=== PATIENT | male | born 1995 | race Hispanic/Latino ===

== ENCOUNTER 2018-02-13 20:20 | Emergency (ER) | payer BC ==
[~2018-02-13] VITALS: Ht 177.8 cm; Wt 79.8 kg
== END 2018-02-13 22:49 | disposition home or self-care (01) ==
LOC: FSED 20:20
DX: R10.31 Right lower quadrant pain (principal)
CPT/HCPCS: 74177; 80048; 81003; 85025; 99284

== ENCOUNTER 2018-04-30 10:27 | Emergency (ER) | payer BC ==
[~2018-04-30] VITALS: Ht 177.8 cm; Wt 79.8 kg
[2018-04-30] MEDS ORDERED: CIALIS5 MG PO (10:40)
[2018-04-30] MEDS ORDERED: ROBAXIN-750750 MG PO (11:04)
[2018-04-30] MEDS ORDERED: KETOROLAC TROME10 MG PO (11:04)
--- OUTSIDE RECORDS SUMMARY | 2018-05-02 13:57 | XMS REPORT | Clinical Summary ---
Author Author [facility] Organization [facility] Address Unknown Phone Unavailable Care Team Providers Care Geospatial Specialist Name Role Phone PCP Unavailable Allergies No Known Allergies Current Medications Prescription Sig. Disp. Refills Start End Date Status Date famotidine (PEPCID) 20 mg Take 1 tablet by mouth 2 60 tablet 0 07/29/19 Active tabletIndications: times daily. 18 Gastroesophageal reflux disease, esophagitis presence not specified Active Problems Problem Noted Date Gastroesophageal reflux disease 07/29/2017 Encounters Date Type Specialty Care Team Description 07/29/2017 Emergency Emergency Medicine Papa Rubio MD Gastroesophageal reflux disease, esophagitis presence not specified (Primary Dx); Epigastric pain after 04/29/2017 Social History Tobacco Use Types Packs/Day Years Used Date Current Some Day Smoker Smokeless Tobacco: Former User Sex Assigned at Date Recorded Not on file Last Filed Vital Signs Vital Sign Reading Time Taken Blood Pressure 126/68 07/29/2017 10:00 PM VACCINE CUSTOMER REPRESENTATIVE Pulse 88 07/29/2017 10:00 PM VACCINE CUSTOMER REPRESENTATIVE Temperature 36.9 C (98.5 F) 07/29/2017 10:00 PM VACCINE CUSTOMER REPRESENTATIVE Respiratory Rate 18 07/29/2017 10:00 PM VACCINE CUSTOMER REPRESENTATIVE Oxygen Saturation 98% 07/29/2017 10:00 PM VACCINE CUSTOMER REPRESENTATIVE Inhaled Oxygen - - Concentration Weight - - Height - - Body Mass Index - - Plan of Treatment Health Maintenance Due Date Last Done Comments IMM MenB (1 of 2 - 2004 Bexsero 2-Dose Series) IMM Influenza Seasonal 04/17/2018Apr to September (>/=19 yrs) Procedures Procedure Name Priority Date/Time Associated Diagnosis Comments CBC/DIFF STAT 07/29/2017 Results for this 9:10 AM VACCINE CUSTOMER REPRESENTATIVE procedure are in the results section. LIVER PROFILE STAT 07/29/2017 Results for this 9:10 AM VACCINE CUSTOMER REPRESENTATIVE procedure are in the results section. LIPASE STAT 07/29/2017 Results for this 9:10 AM VACCINE CUSTOMER REPRESENTATIVE procedure are in the results section. HIV-1/HIV-2 ROUTINE STAT 07/29/2017 Results for this SCREENING 9:10 AM VACCINE CUSTOMER REPRESENTATIVE procedure are in the results section. BMP POC Routine 07/29/2017 Results for this 9:08 AM VACCINE CUSTOMER REPRESENTATIVE procedure are in the results section. UA CHEMISTRIES STAT 07/29/2017 Results for this 9:00 AM VACCINE CUSTOMER REPRESENTATIVE procedure are in the results section. after 04/29/2017 Results * HIV-1/HIV-2 ROUTINE SCREENING (07/29/2017 9:10 AM) HIV-1/HIV-2 Negative NEG BT OUTPATIENT DRAW 2 Performing Organization Address [facility] Phone Number MISYS BT OUTPATIENT DRAW 2 * LIVER PROFILE (07/29/2017 9:10 AM) T Protein 7.5 6.4 - 8.2 g/dL BT MAIN-STATION 4 Albumin 4.1 3.4 - 5.0 g/dL BT MAIN-STATION 4 T Bilirubin 1.4 (H) 0.2 - 1.0 mg/dL BT MAIN-STATION 4 Alk Phos 81 45 - 117 U/L BT MAIN-STATION 4 AST 20 15 - 37 U/L BT MAIN-STATION 4 ALT 35 12 - 78 U/L BT MAIN-STATION 4 D Bilirubin 0.3 (H) 0.0 - 0.2 mg/dL BT MAIN-STATION 4 Specimen Blood Performing Organization Address [facility] Phone Number MISYS BT MAIN-STATION 4 * LIPASE (07/29/2017 9:10 AM) Lipase 84 73 - 393 U/L BT MAIN-STATION 4 Specimen Blood Performing Organization Address [facility] Phone Number MISYS BT MAIN-STATION 4 * CBC/DIFF (07/29/2017 9:10 AM) WBC 9.0 4.5 - 12.0 K/uL BT MAIN-STATION 2 RBC 4.90 4.60 - 6.20 M/uL BT MAIN-STATION 2 Hemoglobin 15.3 14.0 - 18.0 g/dL BT MAIN-STATION 2 Hematocrit 45.5 40.0 - 54.0 % BT MAIN-STATION 2 MCV 93 (H) 82 - 92 fL BT MAIN-STATION 2 MCH 31.2 (H) 27.0 - 31.0 pg BT MAIN-STATION 2 MCHC 33.6 32.0 - 36.0 g/dL BT MAIN-STATION 2 RDW 43.2 35.1 - 43.9 fL BT MAIN-[facility]ATION 2 Platelet 236 150 - 400 K/uL BT MAIN[facility] 2 Mean Platelet Volume 11.3 9.4 - 12.4 fL BT MAIN-STATION 2 Percent NRBC 0.0 BT MAIN-STATION 2 Absolute NRBC 0.00 BT MAIN-[facility]ATION 2 Neutrophil 66.6 34.0 - 67.9 % BT MAIN-[facility] 2 Lymphocyte 22.6 21.8 - 50.0 % BT MAIN-[facility]ATION 2 Monocyte 10.1 5.3 - 12.0 % BT MAIN-[facility] 2 Eosinophil 0.1 (L) 0.8 - 5.0 % BT MAIN-STATION 2 Basophil 0.3 0.2 - 1.2 % BT MAIN-STATION 2 Pct Immat Gran 0.3 0.0 - 0.5 BT MAIN-STATION 2 Neutrophil, Abs 5.99 (H) 1.78 - 5.36 K/uL BT MAIN-STATION 2 Lymphocyte, Abs 2.04 1.32 - 3.57 K/uL BT MAIN-STATION 2 Monocyte, Abs 0.91 (H) 0.30 - 0.82 K/uL BT MAIN-STATION 2 Eosinophil, Abs 0.01 (L) 0.04 - 0.54 K/uL BT MAIN-STATION 2 Basophil, Abs 0.03 0.01 - 0.08 K/uL BT MAIN-STATION 2 Absol Immat Gran 0.03 0.00 - 0.03 K/uL BT MAIN-STATION 2 Specimen Blood Performing Organization Address City/State/Zipcode Phone Number MISYS BT MAIN-STATION 2 * BMP POC (07/29/2017 9:08 AM) CO2 POC 26 21 - 32 mmol/L BT MAIN-STATION 1 Chloride POC 101 98 - 107 mmol/L BT MAIN-[facility]ATION 1 Potassium POC 4.1 3.50 - 5.10 mmol/L BT MAIN-STATION 1 Sodium POC 141 136 - 145 mmol/L BT MAIN-[facility]ATION 1 Glucose POC 98 74 - 106 mg/dL BT [facility]IN[facility] 1 Urea Nitrogen POC 10 7 - 18 mg/dL BT [facility]IN[facility] 1 Creatinine POC 0.8 0.6 - 1.3 mg/dL BT MAIN-[facility] 1 Calcium Ionized POC 1.19 1.15 - 1.29 mmol/L BT MAIN-[facility]ATION 1 Hemoglobin POC 16.3 14.0 - 18.0 g/dL BT MAIN-[facility]ATION 1 Hematocrit POC 48.0 40.0 - 54.0 % BT MAIN-STATION 1 GFR, Estimated >60 mL/min/1.73 m2 BT MAIN-STATION 1 GFR, Estim, Afr-Am >60 mL/min/1.73 m2 BT MAIN-STATION 1 Performing Organization Address [facility] Phone Number MISYS BT MAIN-STATION 1 * UA CHEMISTRIES (07/29/2017 9:00 AM) Color Yellow BT MAIN-STATION 3 Clarity Clear BT MAIN-STATION 3 Spec [place] 1.019 1.001 - 1.035 BT MAIN-STATION 3 pH 7.0 5 - 8 BT MAIN-STATION 3 Protein Negative NEG BT MAIN-STATION 3 Glucose Negative NEG BT MAIN-STATION 3 Ketone Negative NEG BT MAIN-STATION 3 Bilirubin Negative NEG BT MAIN-STATION 3 Nitrate Negative NEG BT MAIN-STATION 3 Urobilinogen <1.0 0.2 - 1.0 EU/dL BT MAIN-STATION 3 Leukocyte Negative NEG BT MAIN-STATION 3 Blood Negative NEG BT MAIN-STATION 3 Specimen Urine Performing Organization Address [facility] Phone Number MISYS BT MAIN-STATION 3 after 04/29/2017
--- OUTSIDE RECORDS SUMMARY | 2018-05-02 13:57 | XMS REPORT | Continuity of Care Document ---
Author Author [facility] Interface Address Unknown Phone Unavailable Problems Problem Status Onset Date Classification Date Reported Comments Source Weakness 09/13/2017 12/11/2017 [facility] Testicular pain, unspecified 09/09/2017 12/08/2017 [facility] Generalized weakness 2017 12/11/2017 [facility] WEAKNESS Active 2017 [facility] Testicular pain 09/01/2017 12/08/2017 [facility] TESTICULAR PAIN Active 08/31/2017 [facility] Gastroesophageal reflux disease Active 07/29/2017 Problem 04/21/2018 [facility] Balanitis Active Problem 01/12/2018 [facility] Prostatitis Active Problem 01/12/2018 [facility] Other fatigue 12/11/2017 [facility] Left testicular pain 12/11/2017 [facility] Right testicular pain 12/11/2017 [facility] Medications Medication Details Route Status Patient Instructions Ordering Provider Order Date Source Pimecrolimus 10 MG/ML Topical Cream [Elidel] 1 appl, TOP, BID, X 30 day, # 15 gm, 0 Refill(s), Pharmacy: [id number] [id number] Active 01/05/2018 [facility] Trimethoprim 100 MG Oral Tablet 100 mg=1 tab, PO, Q12H, take 1 after intercourse, X 30 day, # 30 tab, 0 Refill(s), Pharmacy: [facility] [id number] Active 01/05/2018 [facility] Pimecrolimus 10 MG/ML Topical Cream [Elidel] 1 appl, TOP, Daily, apply and rub in well, X 7 day, # 15 gm, 0 Refill(s), Pharmacy: [facility] [id number] Active 11/10/2017 [facility] Clotrimazole 10 MG/ML Topical Solution 1 appl, TOP, TID, X 10 day, # 30 mL, 1 Refill(s), Pharmacy: [facility] [id number] No Longer Active 10/06/2017 [facility] Ciprofloxacin 500 MG Oral Tablet [Cipro] 500 mg=1 tab, PO, Q12H, X 30 day, # 60 tab, 1 Refill(s), Pharmacy: [id number] No Longer Active 10/06/2017 [facility] Ciprofloxacin 500 MG Oral Tablet [Cipro] 500 mg=1 tab, PO, Q12H, X 28 day, # 56 tab, 0 Refill(s) No Longer Active 09/08/2017 [facility] Tamsulosin hydrochloride 0.4 MG Oral Capsule [Flomax] 0.4 mg=1 cap, PO, Daily, Take before bed, # 30 cap, 0 Refill(s) No Longer Active 09/08/2017 [facility] Ondansetron 4 MG Disintegrating Tablet 4 mg=1 tab, PO, TID, PRN Nausea / Vomiting, Dissolve tab under tongue, # 20 tab, 0 Refill(s) Active 2017 [facility] ibuprofen 800 mg oral tablet 800 mg=1 tab, PO, Q6H, PRN Fever or Pain, Take with food, X 10 day, # 30 tab, 0 Refill(s) No Longer Active 09/01/2017 [facility] Phenazopyridine hydrochloride 200 MG Oral Tablet [Pyridium] 200 mg=1 tab, PO, TID, PRN Dysuria, X 2 day, # 6 tab, 0 Refill(s) No Longer Active 09/01/2017 [facility] doxycycline hyclate 100 MG Oral Capsule 100 mg=1 cap, PO, BID, X 14 day, # 28 cap, 0 Refill(s) No Longer Active 09/01/2017 [facility] Ibuprofen 800 mg, Route: PO, Drug form: TAB, ONCE, Dosing Weight 82.273, kg, Priority: STAT, Start date: 09/01/17 1:48:00 [employer], Stop date: 09/01/17 1:48:00 [employer] Inactive 09/01/2017 [facility] Famotidine 20 Mg Tablet Pepcid 20 Mg Tablet Take 1 tablet by mouth 2 times daily. Oral Active 07/29/2017 [facility] Allergies, Adverse Reactions, Alerts Substance Category Reaction Severity Reaction type Status Date Reported Comments Source Immunizations Immunization Date Given Site Status Last Updated Comments Source Results Order Name Results Value Reference Range Date Interpretation Comments Source URINE AND STOOL POC UA Turbidity Clear *NA* (01/05/18 10:35 AM) Clear 01/05/2018 [facility] URINE AND STOOL POC UA SG 1.025 <=1.030 01/05/2018 [facility] URINE AND STOOL POC UA Color Yellow *NA* (01/05/18 10:35 AM) Yellow 01/05/2018 [facility] URINE AND STOOL POC UA LeukEst Negative *NA* (01/05/18 10:35 AM) Negative 01/05/2018 [facility] URINE AND STOOL POC UA Bld Negative *NA* (01/05/18 10:35 AM) Negative 01/05/2018 [facility] URINE AND STOOL POC UA Uro 1.0 EU/dL 0.1 - 1.0 01/05/2018 [facility] URINE AND STOOL POC UA Nit Negative *NA* (01/05/18 10:35 AM) Negative 01/05/2018 [facility] URINE AND STOOL POC UA Glu Negative mg/dL Negative mg/dL 01/05/2018 [facility] URINE AND STOOL POC UA Bili Negative *NA* (01/05/18 10:35 AM) Negative 01/05/2018 [facility] URINE AND STOOL POC UA Prot 30 mg/dL Negative mg/dL 01/05/2018 [facility] URINE AND STOOL POC UA Ket Negative mg/dL Negative mg/dL 01/05/2018 [facility] URINE AND STOOL POC UA pH 7.0 5.0 - 8.0 01/05/2018 [facility] URINE AND STOOL POC UA LeukEst Negative *NA* (11/10/17 8:41 AM) Negative 11/10/2017 [facility] URINE AND STOOL POC UA Nit Negative *NA* (11/10/17 8:41 AM) Negative 11/10/2017 [facility] URINE AND STOOL POC UA Bili Negative *NA* (11/10/17 8:41 AM) Negative 11/10/2017 [facility] URINE AND STOOL POC UA Ket Negative mg/dL Negative mg/dL 11/10/2017 [facility] URINE AND STOOL POC UA Uro 0.2 EU/dL 0.1 - 1.0 11/10/2017 [facility] URINE AND STOOL POC UA Glu Negative mg/dL Negative mg/dL 11/10/2017 [facility] URINE AND STOOL POC UA Prot Negative mg/dL Negative mg/dL 11/10/2017 [facility] URINE AND STOOL POC UA pH 7.0 5.0 - 8.0 11/10/2017 [facility] URINE AND STOOL POC UA SG 1.020 <=1.030 11/10/2017 [facility] URINE AND STOOL POC UA Bld Negative *NA* (11/10/17 8:41 AM) Negative 11/10/2017 [facility] URINE AND STOOL POC UA Turbidity Clear *NA* (11/10/17 8:41 AM) Clear 11/10/2017 [facility] URINE AND STOOL POC UA Color Yellow *NA* (11/10/17 8:41 AM) Yellow 11/10/2017 [facility] URINE AND STOOL POC UA LeukEst Negative *NA* (10/06/17 8:40 AM) Negative 10/06/2017 [facility] URINE AND STOOL POC UA Nit Negative *NA* (10/06/17 8:40 AM) Negative 10/06/2017 [facility] URINE AND STOOL POC UA Uro 0.2 EU/dL 0.1 - 1.0 10/06/2017 [facility] URINE AND STOOL POC UA Bld Negative *NA* (10/06/17 8:40 AM) Negative 10/06/2017 [facility] URINE AND STOOL POC UA Bili Negative *NA* (10/06/17 8:40 AM) Negative 10/06/2017 [facility] URINE AND STOOL POC UA Ket Trace mg/dL Negative mg/dL 10/06/2017 [facility] URINE AND STOOL POC UA Glu Negative mg/dL Negative mg/dL 10/06/2017 [facility] URINE AND STOOL POC UA pH 6.0 5.0 - 8.0 10/06/2017 [facility] URINE AND STOOL POC UA Prot Negative mg/dL Negative mg/dL 10/06/2017 [facility] URINE AND STOOL POC UA SG 1.025 <=1.030 10/06/2017 [facility] URINE AND STOOL POC UA Turbidity Clear *NA* (10/06/17 8:40 AM) Clear 10/06/2017 [facility] URINE AND STOOL POC UA Color Yellow *NA* (10/06/17 8:40 AM) Yellow 10/06/2017 [facility] URINE AND STOOL POC UA Turbidity Clear *NA* (09/08/17 8:47 AM) Clear 09/08/2017 [facility] URINE AND STOOL POC UA Color Yellow *NA* (09/08/17 8:47 AM) Yellow 09/08/2017 [facility] URINE AND STOOL POC UA Bili Negative *NA* (09/08/17 8:47 AM) Negative 09/08/2017 [facility] URINE AND STOOL POC UA Ket Negative mg/dL Negative mg/dL 09/08/2017 [facility] URINE AND STOOL POC UA Bld Negative *NA* (09/08/17 8:47 AM) Negative 09/08/2017 [facility] URINE AND STOOL POC UA SG 1.025 <=1.030 09/08/2017 [facility] URINE AND STOOL POC UA Glu Negative mg/dL Negative mg/dL 09/08/2017 [facility] URINE AND STOOL POC UA Prot Negative mg/dL Negative mg/dL 09/08/2017 [facility] URINE AND STOOL POC UA pH 7.0 5.0 - 8.0 09/08/2017 [facility] URINE AND STOOL POC UA Nit Negative *NA* (09/08/17 8:47 AM) Negative 09/08/2017 [facility] URINE AND STOOL POC UA Uro 0.2 EU/dL 0.1 - 1.0 09/08/2017 [facility] URINE AND STOOL POC UA LeukEst Negative *NA* (09/08/17 8:47 AM) Negative 09/08/2017 [facility] ELECTROLYTES AGAP 10.9 meq/L 10.0 - 20.0 2017 [facility] ELECTROLYTES Globulin 3.6 g/dL 2.7 - 4.2 2017 [facility] ELECTROLYTES B/C Ratio 14 6 - 25 2017 [facility] ELECTROLYTES A/G Ratio 1.1 0.7 - 1.6 2017 [facility] ELECTROLYTES eGFR 131 mL/min/1.73m2 2017 Result Comment: The eGFR is calculated using the CKD-EPI formula. In most young, healthy individuals the eGFR will be >90 mL/min/1.73m2. The eGFR declines with age. An eGFR of 60-89 may be normal in some populations, particularly the elderly, for whom the CKD-EPI formula has not been extensively validated. Use of the eGFR is not recommended in the following populations: Individuals with unstable creatinine concentrations, including patients and those with serious co-morbid conditions. Patients with extremes in muscle mass or diet. The data above are obtained from the National Kidney Disease Education Program (NKDEP) which additionally recommends that when the eGFR is used in patients with extremes of body mass index for purposes of drug dosing, the eGFR should be multiplied by the estimated BMI. [facility] ELECTROLYTES Sodium Lvl 138 meq/L 135 - 145 2017 [facility] ELECTROLYTES Chloride Lvl 104 meq/L 95 - 109 2017 [facility] ELECTROLYTES Creatinine Lvl 0.72 mg/dL 0.50 - 1.40 2017 [facility] ELECTROLYTES Potassium Lvl 3.9 meq/L 3.5 - 5.1 2017 [facility] ELECTROLYTES Total Protein 7.7 g/dL 6.4 - 8.4 2017 [facility] ELECTROLYTES Calcium Lvl 8.7 mg/dL 8.5 - 10.5 2017 [facility] ELECTROLYTES ALT 29 unit/L 0 - 65 2017 [facility] ELECTROLYTES CO2 27 meq/L 24 - 32 2017 [facility] ELECTROLYTES Albumin Lvl 4.1 g/dL 3.5 - 5.0 2017 [facility] ELECTROLYTES Bili Total 1.1 mg/dL 0.2 - 1.3 2017 [facility] ELECTROLYTES Alk Phos 77 unit/L 39 - 136 2017 [facility] ELECTROLYTES AST 15 unit/L 0 - 37 2017 [facility] ELECTROLYTES BUN 10 mg/dL 7 - 22 2017 [facility] ELECTROLYTES Glucose Lvl 92 mg/dL 70 - [address] [facility] Platelet 217 K/CMM 133 - [address] [facility] RDW 13.5 % 11.5 - 14.[address] [facility] WBC 8.5 K/CMM 3.7 - 10.[address] [facility] RBC 4.92 M/CMM 4.70 - 6.[address] [facility] Hct 45.5 % 42.0 - 54.[address] [facility] Hgb 15.5 g/dL 14.0 - 18.[address] [facility] MPV 9.0 fL 7.4 - 10.[address] [facility] MCH 31.5 pg 27.0 - 31.[address] [facility] MCHC 34.1 g/dL 32.0 - 36.[address] [facility] MCV 92.3 fL 80.0 - 94.0 2017 [facility] HEMATOLOGY Basophils # 0.1 K/CMM 0.0 - 0.2 2017 [facility] HEMATOLOGY Eosinophils # 0.1 K/CMM 0.0 - 0.5 2017 [facility] HEMATOLOGY Eosinophils 0.6 % 0.0 - 4.0 2017 [facility] HEMATOLOGY Monocytes # 0.9 K/CMM 0.0 - 0.8 2017 [facility] HEMATOLOGY Segs-Bands # 5.8 K/CMM 1.5 - 8.1 2017 [facility] HEMATOLOGY Lymphocytes # 1.6 K/CMM 1.0 - 5.5 2017 [facility] HEMATOLOGY Basophils 0.6 % 0.0 - 1.0 2017 [facility] HEMATOLOGY Lymphocytes 19.0 % 20.0 - 40.0 2017 [facility] HEMATOLOGY Monocytes 10.8 % 2.0 - 12.0 2017 [facility] HEMATOLOGY Segs 69.0 % 45.0 - 75.0 2017 [facility] MOLECULAR DIAGNOSTIC N gonorrhea by Amp Det (APTIMA) Negative *NA* (09/01/17 2:00 AM) Negative 09/01/2017 [facility] MOLECULAR DIAGNOSTIC C trachomatis by Amp Det (APTIMA) Negative *NA* (09/01/17 2:00 AM) Negative 09/01/2017 [facility] MOLECULAR DIAGNOSTIC Source APTIMA Urine *NA* (09/01/17 2:00 AM) 09/01/2017 [facility] URINE AND STOOL UA Urobilinogen <=1.0 mg/dL 0.1 - 1.0 09/01/2017 [facility] URINE AND STOOL UA Color Ltyellow 09/01/2017 [facility] URINE AND STOOL UA RBC null 0 - 2 09/01/2017 [facility] URINE AND STOOL UA WBC null 0 - 5 09/01/2017 [facility] URINE AND STOOL UA Leuk Est Negative (09/01/17 2:00 AM) Negative 09/01/2017 [facility] URINE AND STOOL UA Nitrite Negative (09/01/17 2:00 AM) Negative 09/01/2017 [facility] URINE AND STOOL UA Blood Negative (09/01/17 2:00 AM) Negative 09/01/2017 [facility] URINE AND STOOL UA Sq Epi Occasional /LPF Few /LPF 09/01/2017 [facility] URINE AND STOOL UA Bili Negative *NA* (09/01/17 2:00 AM) Negative 09/01/2017 [facility] URINE AND STOOL UA Ketones Negative mg/dL Negative mg/dL 09/01/2017 [facility] URINE AND STOOL UA Protein Negative mg/dL Negative mg/dL 09/01/2017 [facility] URINE AND STOOL UA pH 6.0 5.0 - 8.0 09/01/2017 [facility] URINE AND STOOL UA Glucose Negative mg/dL Negative mg/dL 09/01/2017 [facility] URINE AND STOOL UA Turbidity Clear (09/01/17 2:00 AM) Clear 09/01/2017 [facility] URINE AND STOOL UA Spec Grav 1.018 <=1.030 09/01/2017 [facility] Scrotal/Testicle w Doppler US Scrotal/Testicle w Doppler US Clinical Indication: - Testicular pain; Comparison: None TECHNIQUE: Sonographic evaluation of the scrotum and testes was performed using high resolution B-mode imaging as well as pulse and color Doppler imaging. FINDINGS: TESTES: The right testicle measures 4.0 x 2.1 x 2.8 cm. The left testicle measures 4.4 x 2.1 x 2.9 cm. There is normal bilateral testicular contour and morphology. There are no testicular masses or testicular calcifications. The Doppler images of the testicles show normal blood flow. EPIDIDYMIDES: Bilateral epididymal head, body and tail regions are unremarkable. Right epididymis measures 1.1 x 0.7 x 0.7 cm left epididymis measure 0.9 x 0.7 x 0.7 cm SCROTUM: There is no hydrocele. There is no evidence of varicoceles. There is no scrotal edema. IMPRESSION: 1. Unremarkable testicular ultrasound with normal testicular Doppler blood flow. SL: [id number] 09/01/2017 - - Read by: Pepe Recio MD Dictated Date/time: 09/01/17 03:38 Electronically Signed by: Pepe Recio MD 09/01/17 03:40 FINAL REPORT [facility] UA CHEMISTRIES Color Yellow 07/29/2017 [facility] UA CHEMISTRIES Clarity Clear 07/29/2017 [facility] UA CHEMISTRIES Spec [place] 1.019 1.001 - 1.035 07/29/2017 [facility] UA CHEMISTRIES pH 7.0 5 - 8 07/29/2017 [facility] UA CHEMISTRIES Protein Negative NEG 07/29/2017 [facility] UA CHEMISTRIES Glucose Negative NEG 07/29/2017 [facility] UA CHEMISTRIES Ketone Negative NEG 07/29/2017 [facility] UA CHEMISTRIES Bilirubin Negative NEG 07/29/2017 [facility] UA CHEMISTRIES Nitrate Negative NEG 07/29/2017 [facility] UA CHEMISTRIES Urobilinogen <1.0 0.2 - 1 07/29/2017 [facility] UA CHEMISTRIES Leukocyte Negative NEG 07/29/2017 [facility] UA CHEMISTRIES Blood Negative NEG 07/29/2017 [facility] LIPASE Lipase 84 U/L 73 - 393 07/29/2017 [facility] LIVER PROFILE T Protein 7.5 g/dL 6.4 - 8.2 07/29/2017 [facility] LIVER PROFILE Albumin 4.1 g/dL 3.4 - 5 07/29/2017 [facility] LIVER PROFILE T Bilirubin 1.4 mg/dL 0.2 - 1 07/29/2017 [facility] LIVER PROFILE Alk Phos 81 U/L 45 - 117 07/29/2017 [facility] LIVER PROFILE AST 20 U/L 15 - 37 07/29/2017 [facility] LIVER PROFILE ALT 35 U/L 12 - 78 07/29/2017 [facility] LIVER PROFILE D Bilirubin 0.3 mg/dL 0 - 0.2 07/29/2017 [facility] LIVER PROFILE Lab Interpretation Abnormal 07/29/2017 [facility] HIV-1/HIV-2 ROUTINE SCREENING HIV-1/HIV-2 Negative NEG 07/29/2017 [facility] CBC/DIFF WBC 9.0 K/uL 4.5 - 12 07/29/2017 [facility] CBC/DIFF RBC 4.90 4.60 - 6.20 07/29/2017 [facility] CBC/DIFF Hemoglobin 15.3 g/dL 14 - 18 07/29/2017 [facility] CBC/DIFF Hematocrit 45.5 % 40 - 54 07/29/2017 [facility] CBC/DIFF MCV 93 fL 82 - 92 07/29/2017 [facility] CBC/DIFF MCH 31.2 pg 27 - 31 07/29/2017 [facility] CBC/DIFF MCHC 33.6 g/dL 32 - 36 07/29/2017 [facility] CBC/DIFF RDW 43.2 fL 35.1 - 43.9 07/29/2017 [facility] CBC/DIFF Platelet 236 K/uL 150 - 400 07/29/2017 [facility] CBC/DIFF Mean Platelet Volume 11.3 fL 9.4 - 12.4 07/29/2017 [facility] CBC/DIFF Percent NRBC 0.0 07/29/2017 [facility] CBC/DIFF Absolute NRBC 0.00 07/29/2017 [facility] CBC/DIFF Neutrophil 66.6 % 34 - 67.9 07/29/2017 [facility] CBC/DIFF Lymphocyte 22.6 % 21.8 - 50 07/29/2017 [facility] CBC/DIFF Monocyte 10.1 % 5.3 - 12 07/29/2017 [facility] CBC/DIFF Eosinophil 0.1 % 0.8 - 5 07/29/2017 [facility] CBC/DIFF Basophil 0.3 % 0.2 - 1.2 07/29/2017 [facility] CBC/DIFF Pct Immat Gran 0.3 0.0 - 0.5 07/29/2017 [facility] CBC/DIFF Neutrophil, Abs 5.99 K/uL 1.78 - 5.36 07/29/2017 [facility] CBC/DIFF Lymphocyte, Abs 2.04 K/uL 1.32 - 3.57 07/29/2017 [facility] CBC/DIFF Monocyte, Abs 0.91 K/uL 0.3 - 0.82 07/29/2017 [facility] CBC/DIFF Eosinophil, Abs 0.01 K/uL 0.04 - 0.54 07/29/2017 [facility] CBC/DIFF Basophil, Abs 0.03 K/uL 0.01 - 0.08 07/29/2017 [facility] CBC/DIFF Absol Immat Gran 0.03 K/uL 0 - 0.03 07/29/2017 [facility] CBC/DIFF Lab Interpretation Abnormal 07/29/2017 [facility] POC CO2 POC 26 mmol/L 21 - 32 07/29/2017 [facility] POC Chloride POC 101 mmol/L 98 - 107 07/29/2017 [facility] POC Potassium POC 4.1 mmol/L 3.5 - 5.1 07/29/2017 [facility] POC Sodium POC 141 mmol/L 136 - 145 07/29/2017 [facility] POC Glucose POC 98 mg/dL 74 - 106 07/29/2017 [facility] POC Urea Nitrogen POC 10 mg/dL 7 - 18 07/29/2017 [facility] POC Creatinine POC 0.8 mg/dL 0.6 - 1.3 07/29/2017 [facility] POC Calcium Ionized POC 1.19 mmol/L 1.15 - 1.29 07/29/2017 [facility] POC Hemoglobin POC 16.3 g/dL 14 - 18 07/29/2017 [facility] POC Hematocrit POC 48.0 % 40 - 54 07/29/2017 [facility] POC GFR, Estimated >60 mL/min/1.73 m2 07/29/2017 [facility] POC GFR, Estim, Afr-Am >60 mL/min/1.73 m2 07/29/2017 [facility] CBC/DIFF WBC 9.0 K/uL 4.5 - 12 07/29/2017 [facility] CBC/DIFF RBC 4.90 M/uL 4.60 - 6.20 07/29/2017 [facility] CBC/DIFF Hemoglobin 15.3 g/dL 14 - 18 07/29/2017 [facility] CBC/DIFF Hematocrit 45.5 % 40 - 54 07/29/2017 [facility] CBC/DIFF MCV 93 fL 82 - 92 07/29/2017 [facility] CBC/DIFF MCH 31.2 pg 27 - 31 07/29/2017 [facility] CBC/DIFF MCHC 33.6 g/dL 32 - 36 07/29/2017 [facility] CBC/DIFF RDW 43.2 fL 35.1 - 43.9 07/29/2017 [facility] CBC/DIFF Platelet 236 K/uL 150 - 400 07/29/2017 [facility] CBC/DIFF Mean Platelet Volume 11.3 fL 9.4 - 12.4 07/29/2017 [facility] CBC/DIFF Percent NRBC 0.0 07/29/2017 [facility] CBC/DIFF Absolute NRBC 0.00 07/29/2017 [facility] CBC/DIFF Neutrophil 66.6 % 34 - 67.9 07/29/2017 [facility] CBC/DIFF Lymphocyte 22.6 % 21.8 - 50 07/29/2017 [facility] CBC/DIFF Monocyte 10.1 % 5.3 - 12 07/29/2017 [facility] CBC/DIFF Eosinophil 0.1 % 0.8 - 5 07/29/2017 [facility] CBC/DIFF Basophil 0.3 % 0.2 - 1.2 07/29/2017 [facility] CBC/DIFF Pct Immat Gran 0.3 0.0 - 0.5 07/29/2017 [facility] CBC/DIFF Neutrophil, Abs 5.99 K/uL 1.78 - 5.36 07/29/2017 [facility] CBC/DIFF Lymphocyte, Abs 2.04 K/uL 1.32 - 3.57 07/29/2017 [facility] CBC/DIFF Monocyte, Abs 0.91 K/uL 0.3 - 0.82 07/29/2017 [facility] CBC/DIFF Eosinophil, Abs 0.01 K/uL 0.04 - 0.54 07/29/2017 [facility] CBC/DIFF Basophil, Abs 0.03 K/uL 0.01 - 0.08 07/29/2017 [facility] CBC/DIFF Absol Immat Gran 0.03 K/uL 0 - 0.03 07/29/2017 [facility] CBC/DIFF Lab Interpretation Abnormal 07/29/2017 [facility] HIV-1/HIV-2 ROUTINE SCREENING HIV-1/HIV-2 Negative NEG 07/29/2017 [facility] LIPASE Lipase 84 U/L 73 - 393 07/29/2017 [facility] LIVER PROFILE T Protein 7.5 g/dL 6.4 - 8.2 07/29/2017 [facility] LIVER PROFILE Albumin 4.1 g/dL 3.4 - 5 07/29/2017 [facility] LIVER PROFILE T Bilirubin 1.4 mg/dL 0.2 - 1 07/29/2017 [facility] LIVER PROFILE Alk Phos 81 U/L 45 - 117 07/29/2017 [facility] LIVER PROFILE AST 20 U/L 15 - 37 07/29/2017 [facility] LIVER PROFILE ALT 35 U/L 12 - 78 07/29/2017 [facility] LIVER PROFILE D Bilirubin 0.3 mg/dL 0 - 0.2 07/29/2017 [facility] LIVER PROFILE Lab Interpretation Abnormal 07/29/2017 [facility] POC CO2 POC 26 mmol/L 21 - 32 07/29/2017 [facility] POC Chloride POC 101 mmol/L 98 - 107 07/29/2017 [facility] POC Potassium POC 4.1 mmol/L 3.5 - 5.1 07/29/2017 [facility] POC Sodium POC 141 mmol/L 136 - 145 07/29/2017 [facility] POC Glucose POC 98 mg/dL 74 - 106 07/29/2017 [facility] POC Urea Nitrogen POC 10 mg/dL 7 - 18 07/29/2017 [facility] POC Creatinine POC 0.8 mg/dL 0.6 - 1.3 07/29/2017 [facility] POC Calcium Ionized POC 1.19 mmol/L 1.15 - 1.29 07/29/2017 [facility] POC Hemoglobin POC 16.3 g/dL 14 - 18 07/29/2017 [facility] POC Hematocrit POC 48.0 % 40 - 54 07/29/2017 [facility] POC GFR, Estimated >60 mL/min/1.73 m2 07/29/2017 [facility] POC GFR, Estim, Afr-Am >60 mL/min/1.73 m2 07/29/2017 [facility] UA CHEMISTRIES Color Yellow 07/29/2017 [facility] UA CHEMISTRIES Clarity Clear 07/29/2017 [facility] UA CHEMISTRIES Spec [place] 1.019 1.001 - 1.035 07/29/2017 [facility] UA CHEMISTRIES pH 7.0 5 - 8 07/29/2017 [facility] UA CHEMISTRIES Protein Negative NEG 07/29/2017 [facility] UA CHEMISTRIES Glucose Negative NEG 07/29/2017 [facility] UA CHEMISTRIES Ketone Negative NEG 07/29/2017 [facility] UA CHEMISTRIES Bilirubin Negative NEG 07/29/2017 [facility] UA CHEMISTRIES Nitrate Negative NEG 07/29/2017 [facility] UA CHEMISTRIES Urobilinogen <1.0 0.2 - 1 07/29/2017 [facility] UA CHEMISTRIES Leukocyte Negative NEG 07/29/2017 [facility] UA CHEMISTRIES Blood Negative NEG 07/29/2017 [facility] Vital Signs Vital Sign Value Date Comments Source Weight 77.273 01/05/2018 [facility] BMI Calculated 24.44 01/05/2018 [facility] Height 177.8 cm 01/05/2018 [facility] Heart Rate 76 01/05/2018 [facility] Systolic (mm Hg) 129 01/05/2018 [facility] Diastolic (mm Hg) 72 01/05/2018 [facility] Weight 77.273 11/10/2017 [facility] BMI Calculated 25.16 11/10/2017 [facility] Height 175.26 cm 11/10/2017 [facility] Heart Rate 71 11/10/2017 [facility] Systolic (mm Hg) 128 11/10/2017 [facility] Diastolic (mm Hg) 74 11/10/2017 [facility] Height 175.26 cm 10/06/2017 [facility] Systolic (mm Hg) 132 10/06/2017 [facility] Diastolic (mm Hg) 85 10/06/2017 [facility] Heart Rate 58 10/06/2017 [facility] Weight 80 09/08/2017 [facility] Heart Rate 66 09/08/2017 [facility] Systolic (mm Hg) 125 09/08/2017 [facility] Diastolic (mm Hg) 81 09/08/2017 [facility] Height 175.26 cm 09/08/2017 [facility] BMI Calculated 26.05 09/08/2017 [facility] Respitory Rate 18 2017 [facility] Systolic (mm Hg) 123 2017 [facility] Diastolic (mm Hg) 76 2017 [facility] Heart Rate 70 2017 [facility] Temperature Oral (F) 98.5 F 2017 [facility] Systolic (mm Hg) 147 2017 [facility] Diastolic (mm Hg) 91 2017 [facility] Heart Rate 63 2017 [facility] Respitory Rate 20 2017 [facility] Temperature Oral (F) 98.5 F 2017 [facility] Height 175.26 cm 2017 [facility] BMI Calculated 26.64 2017 [facility] Weight 81.818 2017 [facility] Systolic (mm Hg) 140 09/01/2017 [facility] Diastolic (mm Hg) 90 09/01/2017 [facility] Heart Rate 81 09/01/2017 [facility] Respitory Rate 18 09/01/2017 [facility] Temperature Oral (F) 97.6 F 09/01/2017 [facility] Weight 82.273 09/01/2017 [facility] Height 175.26 cm 09/01/2017 [facility] BMI Calculated 26.79 09/01/2017 [facility] Temperature Oral (F) 97.6 F 09/01/2017 [facility] Respitory Rate 16 09/01/2017 [facility] Heart Rate 82 09/01/2017 [facility] Systolic (mm Hg) 149 09/01/2017 [facility] Diastolic (mm Hg) 92 09/01/2017 [facility] Systolic (mm Hg) 126 07/30/2017 [facility] Diastolic (mm Hg) 68 07/30/2017 [facility] Heart Rate 88 07/30/2017 [facility] Temperature Oral (F) 36.94 Yasmin 07/30/2017 [facility] Respitory Rate 18 07/30/2017 [facility] Encounters Location Location Details Encounter Type Encounter Number Reason For Visit Attending Provider ADM Date DC Date Status Source Emergency Center [facility] Emergency [id number] Gastroesophageal reflux disease, esophagitis presence not specified Epigastric pain Papa Rubio MD 07/29/2017 07/30/2017 [facility] Emergency [id number] Silas Angulo 09/01/2017 09/01/2017 [facility] Emergency [id number] Nas Ambriz 2017 2017 [facility] Outpatient [id number] SHIRLENE KAROLINE 09/08/2017 Active [facility] Outpatient [id number] Shirlene Karoline 09/08/2017 09/09/2017 [facility] Out[facility] [id number] SHIRLENE KAROLINE 10/06/2017 Active [facility] Outpatient [id number] Shirlene Karoline 10/06/2017 10/07/2017 [facility] Outpatient [id number] SHIRLENE KAROLINE 11/10/2017 Active [facility] Outpatient [id number] Shirlene Karoline 11/10/2017 11/11/2017 [facility] Outpatient [id number] SHIRLENE KAROLINE 01/05/2018 Active [facility] Outpatient [id number] Shirlene Karoline 01/05/2018 01/06/2018 [facility] Outpatient [id number] SHIRLENE KAROLINE 02/22/2018 Active [facility] Outpatient [id number] SHIRLENE KAROLINE 04/05/2018 Active [facility] Outpatient [id number] [facility] 04/21/2018 Active [facility] Outpatient [id number] PROCEDURE ROOM 1 04/21/2018 Active [facility] Outpatient [id number] [facility] 04/21/2018 Active [facility] Outpatient [id number] [facility] 06/02/2018 Active [facility] Procedures Procedure Code Date Perfomer Comments Source HIV-1/HIV-2 ROUTINE SCREENING 84343 07/29/2017 [facility] LIPASE 05159 07/29/2017 [facility] LIVER PROFILE [id number] 07/29/2017 [facility] CBC/DIFF 15235 07/29/2017 [facility] BMP POC 33695 07/29/2017 [facility] UA CHEMISTRIES [id number] 07/29/2017 [facility]
--- OUTSIDE RECORDS SUMMARY | 2018-05-02 13:58 | XMS REPORT ---
Author Author [facility] Address Unknown Phone Unavailable Care Team Providers Care Community Engagement Manager Name Role Phone Unavailable Unavailable Problems This patient has no known problems. Allergies, Adverse Reactions, Alerts This patient has no known allergies or adverse reactions. Medications This patient has no known medications. Encounters Start Date/Time End Date/Time Encounter Type Admission Type Attending Clinicians [facility] Facility Care Department Encounter ID 2017-07-29 17:16:35 2017-07-29 17:16:35 Emergency [facility] MED [id number]
--- OUTSIDE RECORDS SUMMARY | 2018-05-02 13:58 | XMS REPORT | Clinical Summary ---
Author Author [facility] Organization [facility] Address Unknown Phone Unavailable Care Team Providers Care Vacuum Drier Operator Name Role Phone PCP Unavailable Allergies No [...] not specified (Primary Dx); Epigastric pain after 04/17/2017 Social History Tobacco Use Types Packs/Day Years Used Date Current Some Day Smoker Smokeless Tobacco: Former User Sex Assigned at Date Recorded Not on file Last Filed Vital Signs Vital Sign Reading Time Taken Blood Pressure 126/68 07/29/2017 10:00 PM SUPERCHARGER REPAIR SUPERVISOR Pulse 88 07/29/2017 10:00 PM SUPERCHARGER REPAIR SUPERVISOR Temperature 36.9 C (98.5 F) 07/29/2017 10:00 PM SUPERCHARGER REPAIR SUPERVISOR Respiratory Rate 18 07/29/2017 10:00 PM SUPERCHARGER REPAIR SUPERVISOR Oxygen Saturation 98% 07/29/2017 10:00 PM SUPERCHARGER REPAIR SUPERVISOR Inhaled Oxygen - - Concentration Weight - - Height - - Body Mass Index - - Plan of Treatment Health Maintenance Due Date Last Done Comments IMM MenB (1 of 2 - 2004 Bexsero 2-Dose Series) IMM Influenza Seasonal 04/17/2018Apr to September (>/=19 yrs) Procedures Procedure Name Priority Date/Time Associated Diagnosis Comments CBC/DIFF STAT 07/29/2017 Results for this 9:10 AM SUPERCHARGER REPAIR SUPERVISOR procedure are in the results section. LIVER PROFILE STAT 07/29/2017 Results for this 9:10 AM SUPERCHARGER REPAIR SUPERVISOR procedure are in the results section. LIPASE STAT 07/29/2017 Results for this 9:10 AM SUPERCHARGER REPAIR SUPERVISOR procedure are in the results section. HIV-1/HIV-2 ROUTINE STAT 07/29/2017 Results for this SCREENING 9:10 AM SUPERCHARGER REPAIR SUPERVISOR procedure are in the results section. BMP POC Routine 07/29/2017 Results for this 9:08 AM SUPERCHARGER REPAIR SUPERVISOR procedure are in the results section. UA CHEMISTRIES STAT 07/29/2017 Results for this 9:00 AM SUPERCHARGER REPAIR SUPERVISOR procedure are in the results section. after 04/17/2017 Results * HIV-1/HIV-2 ROUTINE SCREENING (07/29/2017 9:10 AM) HIV-1/HIV-2 Negative NEG BT OUTPATIENT DRAW 2 Performing Organization Address [facility] [place] MISYS BT OUTPATIENT DRAW 2 [...] MAIN-STATION 4 Specimen Blood Performing Organization Address [facility] [place] Number MISYS BT MAIN-STATION 4 * LIPASE (07/29/2017 9:10 AM) Lipase 84 73 - 393 U/L BT MAIN-STATION 4 Specimen Blood Performing Organization Address [facility] [place] Number MISYS BT MAIN-STATION 4 * [...] m2 BT MAIN-STATION 1 Performing Organization Address [facility] [place] Number MISYS BT MAIN-STATION 1 * UA CHEMISTRIES (07/29/2017 9:00 AM) Color Yellow BT MAIN-STATION 3 Clarity Clear BT MAIN-STATION 3 Spec [place] 1.019 1.001 - 1.035 BT MAIN-STATION 3 [...] MAIN-STATION 3 Specimen Urine Performing Organization Address [facility] [place] Number MISYS BT MAIN-STATION 3 after 04/17/2017
--- OUTSIDE RECORDS SUMMARY | 2018-05-02 13:58 | XMS REPORT | Clinical Summary ---
Author Author [facility] Organization [facility] Address Unknown Phone Unavailable Care Team Providers Care Timber Watchman Name Role Phone PCP Unavailable Allergies No [...] not specified (Primary Dx); Epigastric pain after 04/04/2017 Social History Tobacco Use Types Packs/Day Years Used Date Current Some Day Smoker Smokeless Tobacco: Former User Sex Assigned at Date Recorded Not on file Last Filed Vital Signs Vital Sign Reading Time Taken Blood Pressure 126/68 07/29/2017 10:00 PM PRODUCTION PLANNING MANAGER Pulse 88 07/29/2017 10:00 PM PRODUCTION PLANNING MANAGER Temperature 36.9 C (98.5 F) 07/29/2017 10:00 PM PRODUCTION PLANNING MANAGER Respiratory Rate 18 07/29/2017 10:00 PM PRODUCTION PLANNING MANAGER Oxygen Saturation 98% 07/29/2017 10:00 PM PRODUCTION PLANNING MANAGER Inhaled Oxygen - - Concentration Weight - - Height - - Body Mass Index - - Plan of Treatment Health Maintenance Due Date Last Done Comments IMM MenB (1 of 2 - 2004 Bexsero 2-Dose Series) IMM Influenza Seasonal 04/17/2018Apr to September (>/=19 yrs) Procedures Procedure Name Priority Date/Time Associated Diagnosis Comments CBC/DIFF STAT 07/29/2017 Results for this 9:10 AM PRODUCTION PLANNING MANAGER procedure are in the results section. LIVER PROFILE STAT 07/29/2017 Results for this 9:10 AM PRODUCTION PLANNING MANAGER procedure are in the results section. LIPASE STAT 07/29/2017 Results for this 9:10 AM PRODUCTION PLANNING MANAGER procedure are in the results section. HIV-1/HIV-2 ROUTINE STAT 07/29/2017 Results for this SCREENING 9:10 AM PRODUCTION PLANNING MANAGER procedure are in the results section. BMP POC Routine 07/29/2017 Results for this 9:08 AM PRODUCTION PLANNING MANAGER procedure are in the results section. UA CHEMISTRIES STAT 07/29/2017 Results for this 9:00 AM PRODUCTION PLANNING MANAGER procedure are in the results section. after 04/04/2017 Results * HIV-1/HIV-2 ROUTINE SCREENING (07/29/2017 9:10 AM) HIV-1/HIV-2 Negative NEG BT OUTPATIENT DRAW 2 Performing Organization Address [facility] [place] Number MISYS BT OUTPATIENT DRAW 2 [...] MAIN-STATION 4 Specimen Blood Performing Organization Address [facility] [place] Number MISYS BT MAIN-STATION 4 * LIPASE (07/29/2017 9:10 AM) Lipase 84 73 - 393 U/L BT MAIN-STATION 4 Specimen Blood Performing Organization Address [facility] [place] Number MISYS BT MAIN-STATION 4 * [...] m2 BT MAIN-STATION 1 Performing Organization Address [facility] [place] Number MISYS BT MAIN-STATION 1 * UA CHEMISTRIES (07/29/2017 9:00 AM) Color Yellow BT MAIN-STATION 3 Clarity Clear BT MAIN-STATION 3 Spec [place] 1.019 1.001 - 1.035 BT MAIN-STATION 3 [...] MAIN-STATION 3 Specimen Urine Performing Organization Address [facility] [place] Number MISYS BT MAIN-STATION 3 after 04/04/2017
--- OUTSIDE RECORDS SUMMARY | 2018-05-02 13:58 | XMS REPORT | Clinical Summary ---
Author Author [facility] Organization [facility] Address Unknown Phone Unavailable Care Team Providers Care Machine Design Checker Name Role Phone PCP Unavailable Allergies No [...] not specified (Primary Dx); Epigastric pain after 04/20/2017 Social History Tobacco Use Types Packs/Day Years Used Date Current Some Day Smoker Smokeless Tobacco: Former User Sex Assigned at Date Recorded Not on file Last Filed Vital Signs Vital Sign Reading Time Taken Blood Pressure 126/68 07/29/2017 10:00 PM GUEST RELATIONS AGENT Pulse 88 07/29/2017 10:00 PM GUEST RELATIONS AGENT Temperature 36.9 C (98.5 F) 07/29/2017 10:00 PM GUEST RELATIONS AGENT Respiratory Rate 18 07/29/2017 10:00 PM GUEST RELATIONS AGENT Oxygen Saturation 98% 07/29/2017 10:00 PM GUEST RELATIONS AGENT Inhaled Oxygen - - Concentration Weight - - Height - - Body Mass Index - - Plan of Treatment Health Maintenance Due Date Last Done Comments IMM MenB (1 of 2 - 2004 Bexsero 2-Dose Series) IMM Influenza Seasonal 04/17/2018Apr to September (>/=19 yrs) Procedures Procedure Name Priority Date/Time Associated Diagnosis Comments CBC/DIFF STAT 07/29/2017 Results for this 9:10 AM GUEST RELATIONS AGENT procedure are in the results section. LIVER PROFILE STAT 07/29/2017 Results for this 9:10 AM GUEST RELATIONS AGENT procedure are in the results section. LIPASE STAT 07/29/2017 Results for this 9:10 AM GUEST RELATIONS AGENT procedure are in the results section. HIV-1/HIV-2 ROUTINE STAT 07/29/2017 Results for this SCREENING 9:10 AM GUEST RELATIONS AGENT procedure are in the results section. BMP POC Routine 07/29/2017 Results for this 9:08 AM GUEST RELATIONS AGENT procedure are in the results section. UA CHEMISTRIES STAT 07/29/2017 Results for this 9:00 AM GUEST RELATIONS AGENT procedure are in the results section. after 04/20/2017 Results * HIV-1/HIV-2 ROUTINE SCREENING (07/29/2017 9:10 AM) HIV-1/HIV-2 Negative NEG BT OUTPATIENT DRAW 2 Performing Organization Address [facility] [place] Number MISYS BT OUTPATIENT DRAW 2 [...] Specimen Blood Performing Organization Address [facility] Phone Number MISYS BT MAIN-STATION 4 * LIPASE (07/29/2017 9:10 AM) Lipase 84 73 - 393 U/L BT MAIN-STATION 4 Specimen Blood Performing Organization Address [facility] [place] Number MISYS BT MAIN-STATION 4 * [...] MAIN-STATION 1 Performing Organization Address [facility] [place] Phone Number MISYS BT MAIN-STATION 1 * UA CHEMISTRIES (07/29/2017 9:00 AM) Color Yellow BT MAIN-STATION 3 Clarity Clear BT MAIN-STATION 3 Spec [place] 1.019 1.001 - 1.035 BT MAIN-STATION 3 [...] Specimen Urine Performing Organization Address [facility] [place] Phone Number MISYS BT MAIN-STATION 3 after 04/20/2017
--- OUTSIDE RECORDS SUMMARY | 2018-05-02 13:58 | XMS REPORT | Clinical Summary ---
Author Author [facility] Organization [facility] Address Unknown Phone Unavailable Care Team Providers Care Yeast Pumper Name Role Phone PCP Unavailable Allergies No [...] not specified (Primary Dx); Epigastric pain after 03/13/2017 Social History Tobacco Use Types Packs/Day Years Used Date Current Some Day Smoker Smokeless Tobacco: Former User Sex Assigned at Date Recorded Not on file Last Filed Vital Signs Vital Sign Reading Time Taken Blood Pressure 126/68 07/29/2017 10:00 PM BLINDSTITCH HEMMER Pulse 88 07/29/2017 10:00 PM BLINDSTITCH HEMMER Temperature 36.9 C (98.5 F) 07/29/2017 10:00 PM BLINDSTITCH HEMMER Respiratory Rate 18 07/29/2017 10:00 PM BLINDSTITCH HEMMER Oxygen Saturation 98% 07/29/2017 10:00 PM BLINDSTITCH HEMMER Inhaled Oxygen - - Concentration Weight - - Height - - Body Mass Index - - Plan of Treatment Health Maintenance Due Date Last Done Comments IMM MenB (1 of 2 - 2004 Bexsero 2-Dose Series) IMM Influenza Seasonal 04/17/2018Apr to September (>/=19 yrs) Procedures Procedure Name Priority Date/Time Associated Diagnosis Comments CBC/DIFF STAT 07/29/2017 Results for this 9:10 AM BLINDSTITCH HEMMER procedure are in the results section. LIVER PROFILE STAT 07/29/2017 Results for this 9:10 AM BLINDSTITCH HEMMER procedure are in the results section. LIPASE STAT 07/29/2017 Results for this 9:10 AM BLINDSTITCH HEMMER procedure are in the results section. HIV-1/HIV-2 ROUTINE STAT 07/29/2017 Results for this SCREENING 9:10 AM BLINDSTITCH HEMMER procedure are in the results section. BMP POC Routine 07/29/2017 Results for this 9:08 AM BLINDSTITCH HEMMER procedure are in the results section. UA CHEMISTRIES STAT 07/29/2017 Results for this 9:00 AM BLINDSTITCH HEMMER procedure are in the results section. after 03/13/2017 Results * HIV-1/HIV-2 ROUTINE SCREENING (07/29/2017 9:10 AM) HIV-1/HIV-2 Negative NEG BT OUTPATIENT DRAW 2 Performing Organization Address [facility] [place] Phone Number MISYS BT OUTPATIENT DRAW 2 [...] MAIN-STATION 4 Specimen Blood Performing Organization Address [facility] [place] Phone Number MISYS BT MAIN-STATION 4 * LIPASE (07/29/2017 9:10 AM) Lipase 84 73 - 393 U/L BT MAIN-STATION 4 Specimen Blood Performing Organization Address [facility] [place] Phone Number MISYS BT MAIN-STATION 4 * [...] m2 BT MAIN-STATION 1 Performing Organization Address [facility] Phone Number MISYS BT MAIN-STATION 1 * UA CHEMISTRIES (07/29/2017 9:00 AM) Color Yellow BT MAIN-STATION 3 Clarity Clear BT MAIN-STATION 3 Spec [place] 1.019 1.001 - 1.035 BT MAIN-STATION 3 [...] MAIN-STATION 3 Specimen Urine Performing Organization Address [facility] Phone Number MISYS BT MAIN-STATION 3 after 03/13/2017
--- OUTSIDE RECORDS SUMMARY | 2018-05-02 13:58 | XMS REPORT | Clinical Summary ---
Author Author [facility] Organization [facility] Address Unknown Phone Unavailable Care Team Providers Care Cook Italian Style Food Name Role Phone PCP Unavailable Allergies No [...] not specified (Primary Dx); Epigastric pain after 02/21/2017 Social History Tobacco Use Types Packs/Day Years Used Date Current Some Day Smoker Smokeless Tobacco: Former User Sex Assigned at Date Recorded Not on file Last Filed Vital Signs Vital Sign Reading Time Taken Blood Pressure 126/68 07/29/2017 10:00 PM BATTER DEPOSITOR Pulse 88 07/29/2017 10:00 PM BATTER DEPOSITOR Temperature 36.9 C (98.5 F) 07/29/2017 10:00 PM BATTER DEPOSITOR Respiratory Rate 18 07/29/2017 10:00 PM BATTER DEPOSITOR Oxygen Saturation 98% 07/29/2017 10:00 PM BATTER DEPOSITOR Inhaled Oxygen - - Concentration Weight - - Height - - Body Mass Index - - Plan of Treatment Health Maintenance Due Date Last Done Comments IMM MenB (1 of 2 - 2004 Bexsero 2-Dose Series) IMM Influenza Seasonal 04/17/2018Apr to September (>/=19 yrs) Results * HIV-1/HIV-2 ROUTINE SCREENING (07/29/2017 9:10 AM) Component Value Ref Range HIV-1/HIV-2 Negative NEG Specimen Performing Laboratory MISYS * LIVER PROFILE (07/29/2017 9:10 AM) Component Value Ref Range T Protein 7.5 6.4 - 8.2 g/dL Albumin 4.1 3.4 - 5.0 g/dL T Bilirubin 1.4 (H) 0.2 - 1.0 mg/dL Alk Phos 81 45 - 117 U/L AST 20 15 - 37 U/L ALT 35 12 - 78 U/L D Bilirubin 0.3 (H) 0.0 - 0.2 mg/dL Specimen Performing Laboratory Blood MISYS * LIPASE (07/29/2017 9:10 AM) Component Value Ref Range Lipase 84 73 - 393 U/L Specimen Performing Laboratory Blood MISYS * CBC/DIFF (07/29/2017 9:10 AM) Component Value Ref Range WBC 9.0 4.5 - 12.0 K/uL RBC 4.90 4.60 - 6.20 M/uL Hemoglobin 15.3 14.0 - 18.0 g/dL Hematocrit 45.5 40.0 - 54.0 % MCV 93 (H) 82 - 92 fL MCH 31.2 (H) 27.0 - 31.0 pg MCHC 33.6 32.0 - 36.0 g/dL RDW 43.2 35.1 - 43.9 fL Platelet 236 150 - 400 K/uL Mean Platelet Volume 11.3 9.4 - 12.4 fL Percent NRBC 0.0 Absolute NRBC 0.00 Neutrophil 66.6 34.0 - 67.9 % Lymphocyte 22.6 21.8 - 50.0 % Monocyte 10.1 5.3 - 12.0 % Eosinophil 0.1 (L) 0.8 - 5.0 % Basophil 0.3 0.2 - 1.2 % Pct Immat Gran 0.3 0.0 - 0.5 Neutrophil, Abs 5.99 (H) 1.78 - 5.36 K/uL Lymphocyte, Abs 2.04 1.32 - 3.57 K/uL Monocyte, Abs 0.91 (H) 0.30 - 0.82 K/uL Eosinophil, Abs 0.01 (L) 0.04 - 0.54 K/uL Basophil, Abs 0.03 0.01 - 0.08 K/uL Absol Immat Gran 0.03 0.00 - 0.03 K/uL Specimen Performing Laboratory Blood MISYS * BMP POC (07/29/2017 9:08 AM) Component Value Ref Range CO2 POC 26 21 - 32 mmol/L Chloride POC 101 98 - 107 mmol/L Potassium POC 4.1 3.50 - 5.10 mmol/L Sodium POC 141 136 - 145 mmol/L Glucose POC 98 74 - 106 mg/dL Urea Nitrogen POC 10 7 - 18 mg/dL Creatinine POC 0.8 0.6 - 1.3 mg/dL Calcium Ionized POC 1.19 1.15 - 1.29 mmol/L Hemoglobin POC 16.3 14.0 - 18.0 g/dL Hematocrit POC 48.0 40.0 - 54.0 % GFR, Estimated >60 mL/min/1.73 m2 GFR, Estim, Afr-Am >60 mL/min/1.73 m2 Specimen Performing Laboratory MISYS * UA CHEMISTRIES (07/29/2017 9:00 AM) Component Value Ref Range Color Yellow Clarity Clear Spec [place] 1.019 1.001 - 1.035 pH 7.0 5 - 8 Protein Negative NEG Glucose Negative NEG Ketone Negative NEG Bilirubin Negative NEG Nitrate Negative NEG Urobilinogen <1.0 0.2 - 1.0 EU/dL Leukocyte Negative NEG Blood Negative NEG Specimen Performing Laboratory Urine MISYS after 02/21/2017
--- OUTSIDE RECORDS SUMMARY | 2018-05-02 13:58 | XMS REPORT | Clinical Summary ---
Author Author [facility] Organization [facility] Address Unknown Phone Unavailable Care Team Providers Care Senior Pl Sql Developer Name Role Phone PCP Unavailable Allergies No [...] not specified (Primary Dx); Epigastric pain after 02/20/2017 Social History Tobacco Use Types Packs/Day Years Used Date Current Some Day Smoker Smokeless Tobacco: Former User Sex Assigned at Date Recorded Not on file Last Filed Vital Signs Vital Sign Reading Time Taken Blood Pressure 126/68 07/29/2017 10:00 PM SECOND HAND Pulse 88 07/29/2017 10:00 PM SECOND HAND Temperature 36.9 C (98.5 F) 07/29/2017 10:00 PM SECOND HAND Respiratory Rate 18 07/29/2017 10:00 PM SECOND HAND Oxygen Saturation 98% 07/29/2017 10:00 PM SECOND HAND Inhaled Oxygen - - Concentration Weight - [...] Ref Range Color Yellow Clarity Clear Spec [place] 1.019 1.001 - 1.035 pH 7.0 5 - 8 Protein Negative NEG Glucose Negative NEG Ketone Negative NEG Bilirubin Negative NEG Nitrate Negative NEG Urobilinogen <1.0 0.2 - 1.0 EU/dL Leukocyte Negative NEG Blood Negative NEG Specimen Performing Laboratory Urine MISYS after 02/20/2017
== END 2018-04-30 11:13 | disposition home or self-care (01) ==
LOC: FSED 10:27
DX: M54.5 Low back pain (principal); S39.012A Strain of muscle, fascia and tendon of lower back, initial encounter; X50.1XXA Overexertion from prolonged static or awkward postures, initial encounter; Y99.0 Civilian activity done for income or pay
CPT/HCPCS: 81003; 99283

== ENCOUNTER 2021-08-11 01:27 | Emergency (ER) | payer BC ==
[~2021-08-11] VITALS: Ht 177.8 cm; Wt 79.8 kg
[~2021-08-11 01:27] MED LIST: CIALIS5 MG PO; KETOROLAC TROME10 MG PO; ROBAXIN-750750 MG PO
[2021-08-11] MEDS ORDERED: SODIUM CHLORIDE 0.9% 1000ML 1,000 ML IV STA (01:58)
[2021-08-11] MEDS ORDERED: ONDANSETRON HCL INJ 2MG/ML 2ML 2 MG/ML VIAL IV ONE (02:00)
[2021-08-11] MEDS ORDERED: FAMOTIDINE 20 MG/2 ML VIAL IV ONE (02:00)
[2021-08-11] MEDS ORDERED: KETOROLAC TROMETHAMINE 30 MG/ML VIAL IV ONE (02:00)
[2021-08-11] MEDS ORDERED: FAMOTIDINE20 MG PO (02:05)
[2021-08-11] MEDS ORDERED: MAALOX MAXIMUM355 ML PO (02:05)
[2021-08-11] MEDS ORDERED: ONDANSETRON ODT4 MG PO (02:05)
[2021-08-11] MEDS ORDERED: SODIUM CHLORIDE 0.9% 1000ML 1,000 ML ONE (02:11)
== END 2021-08-11 03:30 | disposition home or self-care (01) ==
LOC: FSED 01:50
DX: R10.13 Epigastric pain (principal); K29.70 Gastritis, unspecified, without bleeding; R11.2 Nausea with vomiting, unspecified
CPT/HCPCS: 80053; 85025; 99283; J1885; J2405; J7030